=== PATIENT | female | born 1985 | race African-American/Black ===

== ENCOUNTER 2017-08-02 11:04 | Emergency (ER) | payer MEDICAID ==
[2014-05-02 14:24] VITALS: BMI 16.9
[~2017-08-02 11:04] MED LIST: DIFLUCAN150 MG PO; FLAGYL500 MG PO; IBUPROFEN400 MG PO; IBUPROFEN600 MG PO; LORTAB 5/500 TA1 TA2 PO; PENICILLIN V P500 MG; PENICILLIN V P500 MG PO; PERCOCET 5-3251 TAB PO
[2017-08-02 11:42] LABS: APPEARANCE CLOUDY (CLEAR); BILIRUBIN NEGATIVE (NEGATIVE); COLOR YELLOW (YELLOW); GLUCOSE NEGATIVE (NEGATIVE); KETONE MODERATE mg/dL (NEGATIVE); NITRITE NEGATIVE (NEGATIVE); PROTEIN 1+ mg/dL (NEGATIVE); UROBILINOGEN NORMAL (NORMAL)
[2017-08-02 11:47] LABS: BACTERIA MANY /hpf (NONE SEEN); HYALINE CAST RARE /lpf (NONE SEEN); MUCUS >1+ /lpf (NONE SEEN); RED CELLS - URINE 25-50 /hpf (0-5); WHITE CELLS - URINE 25-50 /hpf (0-5)
== END 2017-08-02 12:46 | disposition home or self-care (01) ==
LOC: D.ER 11:04
PROVIDERS: Emergency Medicine
DX: N39.0 Urinary tract infection, site not specified (principal); R10.9 Unspecified abdominal pain; F17.200 Nicotine dependence, unspecified, uncomplicated

== ENCOUNTER 2017-12-02 15:30 | Observation (INO) | payer MEDICAID ==
[2017-12-02] VITALS (7 sets, daily range): BP systolic 130–139; BP diastolic 59–87
[~2017-12-02] VITALS: Ht 170.2 cm; Wt 52.3 kg
[2017-12-02 16:11] LABS: BASOPHILS 0.1 % (0-2); EOSINOPHILS 0.9 % (0-7); HEMATOCRIT 40.8 % (36.0-48.0); HEMOGLOBIN 13.9 g/dL (12-16); IMMATURE GRANULOCYTES 0.1 % (0-5); LYMPHOCYTES 42.5 % (15-50); MCH 31.2 pg (26.0-34.0); MCHC 34.1 g/dL (31.0-37.0); MCV 91.5 fL (80.0-100.0); MEAN PLATELET VOLUME 10.6 fL (7.4-10.4); MONOCYTES 6.8 % (2-11); NEUTROPHILS 49.6 % (40-80); PLATELET COUNT 251 10x3/uL (130-400); RBC 4.46 10x6/uL (4.00-5.40); RDW 13.7 % (11.5-14.5); WBC 7.7 10x3/uL (4.8-10.8)
[2017-12-02 16:25] LABS: UDS - AMPHET NEGATIVE QUAL (NEGATIVE); UDS - BARB NEGATIVE QUAL (NEGATIVE); UDS - BENZO NEGATIVE QUAL (NEGATIVE); UDS - COCAINE NEGATIVE QUAL (NEGATIVE); UDS - OPIATE NEGATIVE QUAL (NEGATIVE); UDS - PCP NEGATIVE QUAL (NEGATIVE); UDS - THC POSITIVE QUAL (NEGATIVE)
[2017-12-02 16:38] LABS: ALBUMIN 3.7 g/dL (3.4-5.0); ALKALINE PHOSPHATASE 45 U/L (46-116); ALT (SGPT) 17 U/L (10-68); CALC OSMOLALITY 275 mosm/kg (275-300); CALCIUM 8.8 mg/dL (8.5-10.1); CARBON DIOXIDE 26.2 mmol/L (21.0-32.0); CHLORIDE - SERUM 104 mmol/L (98-107); CREATININE - SERUM 0.9 mg/dL (0.6-1.3); GLUCOSE 88 mg/dL (74-106); POTASSIUM - SERUM 3.5 mmol/L (3.5-5.1); PROTEIN - SERUM 7.6 g/dL (6.4-8.2); SODIUM 139 mmol/L (136-145); UREA NITROGEN 11 mg/dL (7-18); eGFR NON AFRICAN AMERICAN 78 mL/min (90-120)
[2017-12-02 16:55] LABS: HCG - QUANTITATIVE (MATERNAL) 0 mIU/mL
[2017-12-02 16:58] LABS: ALBUMIN 3.7 g/dL (3.4-5.0); ALKALINE PHOSPHATASE 44 U/L (46-116); ALT (SGPT) 17 U/L (10-68); BILIRUBIN - DIRECT 0.14 mg/dL (0.00-0.30); BILIRUBIN - INDIRECT 0.46 mg/dL (0.00-1.00); CALC OSMOLALITY 275 mosm/kg (275-300); CALCIUM 9.2 mg/dL (8.5-10.1); CARBON DIOXIDE 25.3 mmol/L (21.0-32.0); CHLORIDE - SERUM 104 mmol/L (98-107); CREATININE - SERUM 0.9 mg/dL (0.6-1.3); GLUCOSE 87 mg/dL (74-106); PHOSPHOROUS 3.5 mg/dL (2.5-4.9); POTASSIUM - SERUM 3.7 mmol/L (3.5-5.1); PROTEIN - SERUM 7.5 g/dL (6.4-8.2); SODIUM 139 mmol/L (136-145); UREA NITROGEN 11 mg/dL (7-18); eGFR NON AFRICAN AMERICAN 78 mL/min (90-120)
[2017-12-02 18:34] LABS: APPEARANCE HAZY (CLEAR); BILIRUBIN NEGATIVE (NEGATIVE); COLOR YELLOW (YELLOW); GLUCOSE NEGATIVE (NEGATIVE); KETONE NEGATIVE (NEGATIVE); NITRITE POSITIVE (NEGATIVE); PROTEIN NEGATIVE (NEGATIVE); UROBILINOGEN NORMAL (NORMAL)
[2017-12-02 18:35] LABS: BACTERIA MANY /hpf (NONE SEEN); RED CELLS - URINE 0-5 /hpf (0-5)
[2017-12-03 00:21] VITALS: BP 128/74
[2017-12-03 01:18] VITALS: BP 132/74
[2017-12-03 02:27] VITALS: BP 129/84
[2017-12-03 03:20] VITALS: BP 117/62
[2017-12-03 04:59] LABS: BASOPHILS 0.2 % (0-2); EOSINOPHILS 0.6 % (0-7); HEMATOCRIT 42.2 % (36.0-48.0); HEMOGLOBIN 14.3 g/dL (12-16); IMMATURE GRANULOCYTES 0.2 % (0-5); LYMPHOCYTES 41.6 % (15-50); MCHC 33.9 g/dL (31.0-37.0); MCV 91.5 fL (80.0-100.0); MEAN PLATELET VOLUME 10.5 fL (7.4-10.4); MONOCYTES 7.3 % (2-11); NEUTROPHILS 50.1 % (40-80); PLATELET COUNT 251 10x3/uL (130-400); RBC 4.61 10x6/uL (4.00-5.40); RDW 13.9 % (11.5-14.5)
[2017-12-03 05:08] LABS: ALBUMIN 3.4 g/dL (3.4-5.0); ALKALINE PHOSPHATASE 38 U/L (46-116); ALT (SGPT) 18 U/L (10-68); BILIRUBIN - TOTAL 0.67 mg/dL (0.2-1.3); CALC OSMOLALITY 273 mosm/kg (275-300); CALCIUM 8.6 mg/dL (8.5-10.1); CARBON DIOXIDE 27.4 mmol/L (21.0-32.0); CHLORIDE - SERUM 103 mmol/L (98-107); CREATININE - SERUM 0.9 mg/dL (0.6-1.3); GLUCOSE 81 mg/dL (74-106); INR 1.05 (0.85-1.17); POTASSIUM - SERUM 3.6 mmol/L (3.5-5.1); PROTEIN - SERUM 7.3 g/dL (6.4-8.2); PROTIME 13.3 SECONDS (11.6-15.0); SODIUM 138 mmol/L (136-145); UREA NITROGEN 11 mg/dL (7-18); eGFR NON AFRICAN AMERICAN 78 mL/min (90-120)
[2017-12-03 05:09] LABS: APTT 30.1 SECONDS (22.8-39.4)
[2017-12-03 05:13] LABS: WBC 5.1 10x3/uL (4.8-10.8)
[2017-12-03 05:38] VITALS: BP 117/69
[2017-12-03 10:01] VITALS: Ht 170.2 cm; Wt 52.3 kg
[2017-12-03 11:49] VITALS: BP 120/089
== END 2017-12-03 12:22 | disposition short-term general hospital (02) ==
LOC: OBSVTIME → D.ER 15:30 → OBSVTIME 18:18 → D.EDHOLD 18:18 → D.ER 18:52 → D.EDHOLD 18:52 → OBSVTIME 18:53 → D.EDHOLD 12-03 12:22
PROVIDERS: Family Medicine
DX: T45.2X2A Poisoning by vitamins, intentional self-harm, initial encounter (principal); F32.9 Major depressive disorder, single episode, unspecified; F41.9 Anxiety disorder, unspecified; Z72.0 Tobacco use; F10.10 Alcohol abuse, uncomplicated

== ENCOUNTER 2018-05-24 08:03 | Emergency (ER) | payer SELFPAY ==
[~2018-05-24] VITALS: Ht 170.2 cm; Wt 50.0 kg
[2018-05-24 08:33] VITALS: Ht 170.2 cm; Wt 50.0 kg
[2018-05-24 09:00] LABS: BASOPHILS 0.1 % (0-2); EOSINOPHILS 0 % (0-7); HEMATOCRIT 43.2 % (36.0-48.0); HEMOGLOBIN 14.9 g/dL (12-16); IMMATURE GRANULOCYTES 0.3 % (0-5); LYMPHOCYTES 10.3 % (15-50); MCH 31.7 pg (26.0-34.0); MCHC 34.5 g/dL (31.0-37.0); MCV 91.9 fL (80.0-100.0); MEAN PLATELET VOLUME 10.3 fL (7.4-10.4); MONOCYTES 9.7 % (2-11); NEUTROPHILS 79.6 % (40-80); PLATELET COUNT 223 10x3/uL (130-400); RDW 13.8 % (11.5-14.5); WBC 15.6 10x3/uL (4.8-10.8)
[2018-05-24 09:14] LABS: APPEARANCE HAZY (CLEAR); BILIRUBIN NEGATIVE (NEGATIVE); COLOR YELLOW (YELLOW); GLUCOSE NEGATIVE (NEGATIVE); KETONE MODERATE mg/dL (NEGATIVE); NITRITE POSITIVE (NEGATIVE); PROTEIN TRACE mg/dL (NEGATIVE); SPECIFIC GRAVITY 1.025 (1.005-1.020); UROBILINOGEN NORMAL (NORMAL)
[2018-05-24 09:15] LABS: ALBUMIN 3.5 g/dL (3.4-5.0); ALKALINE PHOSPHATASE 51 U/L (46-116); ALT (SGPT) 15 U/L (10-68); AMYLASE - SERUM 59 U/L (25-115); BACTERIA MANY /hpf (NONE SEEN); BILIRUBIN - TOTAL 0.45 mg/dL (0.2-1.3); CALC OSMOLALITY 264 mosm/kg (275-300); CALCIUM 8.6 mg/dL (8.5-10.1); CHLORIDE - SERUM 96 mmol/L (98-107); CREATININE - SERUM 0.9 mg/dL (0.6-1.3); EPITHELIAL CELLS 0-5 /hpf (0-5); GLUCOSE 98 mg/dL (74-106); LIPASE 87 U/L (73-393); MUCUS <1+ /lpf (NONE SEEN); POTASSIUM - SERUM 3.6 mmol/L (3.5-5.1); PROTEIN - SERUM 8.4 g/dL (6.4-8.2); RED CELLS - URINE 0-5 /hpf (0-5); SODIUM 132 mmol/L (136-145); UREA NITROGEN 13 mg/dL (7-18); eGFR NON AFRICAN AMERICAN 77 mL/min (90-120)
[2018-05-24] MEDS ORDERED: ZOFRAN4 MG PO (11:18)
[2018-05-24] MEDS ORDERED: LEVOFLOXACIN500 MG PO (11:18)
[2018-05-24 12:14] VITALS: BP 114/65
== END 2018-05-24 12:15 | disposition home or self-care (01) ==
LOC: D.ER 08:03
PROVIDERS: Family Medicine
DX: N12 Tubulo-interstitial nephritis, not specified as acute or chronic (principal); R50.9 Fever, unspecified; F17.200 Nicotine dependence, unspecified, uncomplicated

== ENCOUNTER 2020-10-20 19:42 | Emergency (ER) | payer SELFPAY ==
[~2020-10-20] VITALS: Ht 170.2 cm; Wt 52.3 kg
[~2020-10-20 19:42] MED LIST changes: +LEVOFLOXACIN500 MG PO; +ZOFRAN4 MG PO
[2020-10-20 19:46] VITALS: Ht 170.2 cm; Wt 52.3 kg
[2020-10-20] MEDS ORDERED: HYDROCODON-ACE1 EA10 PO (20:09)
[2020-10-20] MEDS ORDERED: PENICILLIN V P500 MG PO (20:09)
[2020-10-20 20:20] VITALS: BP 143/82
== END 2020-10-20 20:20 | disposition home or self-care (01) ==
LOC: D.ER 19:42
DX: S02.5XXA Fracture of tooth (traumatic), initial encounter for closed fracture (principal); K08.89 Other specified disorders of teeth and supporting structures; K04.7 Periapical abscess without sinus